=== PATIENT | female | born 1970 | race Caucasian/White ===

== ENCOUNTER → 2022-11-10 10:26 | Outpatient (BNVA) | payer MEDICAID, SELFPAY | PROVIDERS: Visit Provider Physician Assistant | DX: M43.16 Spondylolisthesis, lumbar region (principal) | CPT/HCPCS: 99202 ==

== ENCOUNTER → 2023-02-01 15:26 | Outpatient (BNVA) | payer MEDICAID, SELFPAY | PROVIDERS: Visit Provider Neurological Surgery | DX: M43.16 Spondylolisthesis, lumbar region (principal); M48.062 Spinal stenosis, lumbar region with neurogenic claudication | CPT/HCPCS: 99212 ==

== ENCOUNTER 2023-02-13 06:22 | Inpatient (IN) | payer MEDICAID, SELFPAY ==
--- NOTE | 2023-01-23 | ECG_ITS ---
Test Reason : preop Blood Pressure : / mmHG Vent. Rate : 072 BPM Atrial Rate : 072 BPM P-R Int : 156 ms QRS Dur : 096 ms QT Int : 396 ms P-R-T Axes : 048 047 054 degrees QTc Int : 433 ms Normal sinus rhythm Normal ECG No previous ECGs available Referred By: Kamini Aparicio Electronically Signed By:DARA KELSEY
[2023-01-23 11:29] VITALS: BMI 23.1
[2023-01-23 14:33] LABS: Hemoglobin 13.4 g/dl (12.0-16.0); Mean Corpuscular HGB Conc 33.5 g/dl (31.0-35.0); Mean Corpuscular Hemoglobin 30.9 pg (27.0-33.0); Mean Corpuscular Volume 92.4 fL (80.0-98.0); Mean Platelet Volume 9.9 fL (9.4-12.3); Platelet Count 303 X10*3/uL (160-400); Red Blood Count 4.33 X10*6/uL (4.20-5.50); White Blood Count 7.3 X10*3/uL (4.8-10.8)
[2023-01-23 15:20] LABS: Anion Gap 12 (12-20); Blood Urea Nitrogen 15 mg/dL (9-16); Calcium 9.9 mg/dL (8.4-10.2); Carbon Dioxide 28 mmol/L (22-29); Chloride 105 mmol/L (96-108); Creatinine Clr Calc Pharmacy 78.2; Estimated Glomerular Filt Rate > 60; Glucose Random 122 mg/dL (60-115); Potassium 3.8 mmol/L (3.3-5.1); Sodium 141 mmol/L (135-145)
--- NOTE | 2023-02-10 08:32 | P.CONAN_ITS ---
Documented by User: Kamini Aparicio NP 02/10/23 08:33 HPI - Anesthesia Eval Consult details Narrative: 52yo F for L4-5 Oblique Lumbar Interbody Fusion Pt not seen in [facility] Active Problems Active Problems: All Active Problems (Updated 02/01/23 @ 16:16 by Andrew Newsome MD, PhD) Lumbar stenosis with neurogenic claudication (Acute) Spondylolisthesis, lumbar region (Acute) Past Medical History Medical History (Updated 02/01/23 @ 16:16 by Andrew Newsome MD, PhD) Low back pain Right hip pain Seasonal allergies [place] (hard of hearing) Microscopic hematuria Multiple sclerosis GERD (gastroesophageal reflux disease) Depression Asthma Elevated cholesterol Family History Family History (Updated 01/23/23 @ 11:10 by Berncie Frazier, PETRA) Mother Graves' disease Surgical History Surgical History (Updated 01/23/23 @ 11:09 by Bernice Frazier, RN) Hx of colonoscopy Hx of cystoscopy Social History Social History (Updated 01/23/23 @ 11:33 by Bernice Frazier, RN) Household Members: Other Household Members Other:: room mate Are you a primary eye care professional to a significant other at home: No Do you presently have visiting nurse or other home services: No Patient Tobacco Use Status: Current everyday Tobacco user Tobacco use type: Cigarette Patient Interested in Nicotine Replacement: Yes Use of substances other than those prescribed or required for medical reasons: No Have you been hit, kicked, punched, or otherwise hurt by someone within the past year? If so, by whom?: No Are you DNR?: No Advance Directives: No Advance Directives Information Provided: Yes Advance Directives on File: No Recently lost weight without trying: No Nutrition Risks: No Nutritional Risk Patient : No Meds Allergies Allergy/AdvReac Type Severity Reaction Status Date / Time Sulfa (Sulfonamide Allergy Severe Hives Verified 01/23/23 11:02 Antibiotics) tramadol Allergy Intermediate Rash Verified 01/23/23 11:02 bupropion [From Wellbutrin] AdvReac Severe made her Verified 01/23/23 11:02 filled with rage white paper wasp Allergy Intermediate Swelling Uncoded 01/23/23 11:12 Home Medications Medication Instructions Recorded Confirmed Last Taken Type albuterol sulfate 90 mcg/actuation 2 puff inhalation Q4-6H PRN 01/20/23 01/20/23 02/12/23 History aerosol inhaler (ProAir HFA) Shortness Of Breath Or Wheezing budesonide-formoterol HFA 160 2 puff inhalation BID 01/20/23 01/20/23 Unknown History mcg-4.5 mcg/actuation aerosol inhaler (Symbicort) gabapentin 100 mg capsule 100 mg PO BID 01/20/23 01/23/23 02/13/23 History omeprazole 20 mg capsule,delayed 20 mg PO BID 01/20/23 01/20/23 02/12/23 History release varenicline 0.5 mg (11)-1 mg (42) ea PO DIRECTED 01/20/23 02/12/23 History tablets in a dose pack acetaminophen 500 mg tablet 1,000 mg PO QID PRN Pain 01/23/23 01/23/23 02/13/23 History cholecalciferol (vitamin D3) 10 10 mcg PO DAILY 01/23/23 01/23/23 02/12/23 History mcg (400 unit) capsule (Vitamin D3) gabapentin 100 mg capsule 200 mg PO BEDTIME 01/23/23 01/23/23 02/12/23 History ibuprofen 200 mg capsule 400 mg PO Q8H PRN Pain 01/23/23 01/23/23 02/05/23 History wheat germ oil DAILY 01/23/23 Unknown History Exam Exam Date and Time: February 10, 2023 0832 Height,Weight and Vital Signs: Height 5 ft 5.25 in Weight 63.503 kg Pertinent Lab Results Pertinent Lab Results: Laboratory Tests 01/23/23 01/23/23 13:42 13:46 WBC 7.3 RBC 4.33 Hgb 13.4 Hct 40.0 MCV 92.4 MCH 30.9 MCHC 33.5 RDW 12.0 Plt Count 303 MPV 9.9 Absolute Nucleated RBC 0.000 Nucleated RBC % (auto) 0.0 Sodium 141 Potassium 3.8 Chloride 105 Carbon Dioxide 28 Anion Gap 12 BUN 15 Creatinine 0.74 Estim Creat Clear Calc 78.2 Estimated GFR > 60 Random Glucose 122 H Calcium 9.9 Blood Type A Positive Antibody Screen NEGATIVE Narrative Narrative: EKG 01/2023 Vent. Rate : 072 BPM Atrial Rate : 072 BPM P-R Int : 156 ms QRS Dur : 096 ms QT Int : 396 ms P-R-T Axes : 048 047 054 degrees QTc Int : 433 ms Normal sinus rhythm Normal ECG No previous ECGs available Assessment and Plan Assessment Anesthesia Assessment: Chart Reviewed Documented by User: Gabrielle Smith MD 02/13/23 07:27 [facility] Past Medical History Medical History (Updated 02/01/23 @ 16:16 by Andrew Newsome MD, PhD) Low back pain Right hip pain Seasonal allergies [place] (hard of hearing) Microscopic hematuria Multiple sclerosis GERD (gastroesophageal reflux disease) Depression Asthma Elevated cholesterol Family History Family History (Updated 01/23/23 @ 11:10 by Bernice Frazier RN) Mother Graves' disease Family history of problems with anesthesia: No Surgical History Surgical History (Updated 01/23/23 @ 11:09 by Bernice Frazier RN) Hx of colonoscopy Hx of cystoscopy History of Problems with Anesthesia: No Social History Social History (Updated 01/23/23 @ 11:33 by Bernice Frazier RN) Household Members: Other Household Members Other:: room mate Are you a primary eye care professional to a significant other at home: No Do you presently have visiting nurse or other home services: No Patient Tobacco Use Status: Current everyday Tobacco user Tobacco use type: Cigarette Patient Interested in Nicotine Replacement: Yes Use of substances other than those prescribed or required for medical reasons: No Have you been hit, kicked, punched, or otherwise hurt by someone within the past year? If so, by whom?: No Are you DNR?: No Advance Directives: No Advance Directives Information Provided: Yes Advance Directives on File: No Recently lost weight without trying: No Nutrition Risks: No Nutritional Risk Patient : No Meds Allergies Allergy/AdvReac Type Severity Reaction Status Date / Time Sulfa (Sulfonamide Allergy Severe Hives Verified 01/23/23 11:02 Antibiotics) tramadol Allergy Intermediate Rash Verified 01/23/23 11:02 bupropion [From Wellbutrin] AdvReac Severe made her Verified 01/23/23 11:02 filled with rage white paper wasp Allergy Intermediate Swelling Uncoded 01/23/23 11:12 Home Medications Medication Instructions Recorded Confirmed Last Taken Type albuterol sulfate 90 mcg/actuation 2 puff inhalation Q4-6H PRN 01/20/23 01/20/23 02/12/23 History aerosol inhaler (ProAir HFA) Shortness Of Breath Or Wheezing budesonide-formoterol HFA 160 2 puff inhalation BID 01/20/23 01/20/23 Unknown History mcg-4.5 mcg/actuation aerosol inhaler (Symbicort) gabapentin 100 mg capsule 100 mg PO BID 01/20/23 01/23/23 02/13/23 History omeprazole 20 mg capsule,delayed 20 mg PO BID 01/20/23 01/20/23 02/12/23 History release varenicline 0.5 mg (11)-1 mg (42) ea PO DIRECTED 01/20/23 02/12/23 History tablets in a dose pack acetaminophen 500 mg tablet 1,000 mg PO QID PRN Pain 01/23/23 01/23/23 02/13/23 History cholecalciferol (vitamin D3) 10 10 mcg PO DAILY 01/23/23 01/23/23 02/12/23 History mcg (400 unit) capsule (Vitamin D3) gabapentin 100 mg capsule 200 mg PO BEDTIME 01/23/23 01/23/23 02/12/23 History ibuprofen 200 mg capsule 400 mg PO Q8H PRN Pain 01/23/23 01/23/23 02/05/23 History wheat germ oil DAILY 01/23/23 Unknown History Exam Airway Mallampati Class: III TM Dist: >3cm Neck ROM: Full Assessment and Plan Assessment Anesthesia Assessment: Anesthesia Plan Discussed Final Anesthetic Review Family History of Problems with Anesthesia: No History of Problems with Anesthesia: No NPO: Yes ASA Class: II Final Preanesthetic Review: No Changes in Pt Med Stat, Meds/Allgs Chart Reviewed, Consent Obtained/Reviewed and Anes Risks/Benef Reviewed Patient Risk: Intermediate Procedure Risk: Intermediate Anesthetic Plan Anesthetic Plan: GA Disposition: Standard PACU
[2023-02-13] VITALS (22 sets, daily range): BP systolic 112–171; BP diastolic 66–100; PULSE 59–88; RESP 11–19; TEMP 36.1–36.3; O2SAT 96–100
--- NOTE | ~2023-02-13 | FL_ITS ---
EXAMINATION: XR FLUOROSCOPY WITH IMAGES CLINICAL INFORMATION: L4-L5 0LIF COMPARISON: None available. TECHNIQUE: Fluoroscopy Supervised By: Jerod. Fluoroscopy Time: 1.6 minutes. Cumulative Dose: 68 mGy. DAP: 17.6 Gycm2. Images: 4. FINDINGS: Fluoroscopy performed during posterior L4-L5 fusion. FL/FL guidance in OR IMPRESSION: Fluoroscopy performed by the surgery department. Please see the operative report for additional information.
[2023-02-13] MEDS: methocarbamoL 750 MG TABLET PO (06:44)
[2023-02-13] MEDS: Lactated Ringers 1,000 ML 100 ML IVCONT (06:46)
--- NOTE | 2023-02-13 06:56 | MHC.SHP ---
Pre-Procedural Eval Section A Date of Service: 02/13/23 Section B Chief Complaint: Spondylolisthesis, lumbar region Allergies: Allergies Allergy/AdvReac Type Severity Reaction Status Date / Time Sulfa (Sulfonamide Allergy Severe Hives Verified 01/23/23 11:02 Antibiotics) tramadol Allergy Intermediate Rash Verified 01/23/23 11:02 bupropion [From Wellbutrin] AdvReac Severe made her Verified 01/23/23 11:02 filled with rage white paper wasp Allergy Intermediate Swelling Uncoded 01/23/23 11:12 Review of Systems Sugical H&P ROS: Negative: Constitution, Cardiovascular, Respiratory, Neurological, Psychiatric, Hem-Onc, Allergic/Immunologic, Gastrointestinal, Genitourinary, Musculoskeletal, Integumentary, Endocrine and Eyes/Ears/Nose/Throat Exam Surgical H&P Exam: Not Evaluated: HEENT, Not Evaluated: Heart, Not Evaluated: Lungs, Not Evaluated: Extremities, Not Evaluated: Abdomen, Not Evaluated: Skin and Not Evaluated: Neurological Plan Diagnosis/Plan: Unchanged I have reviewed the history and physical and performed a pertinent physical examination on my patient. No changes have occurred unless specified. Plan remains the same, L4-5 OLIF Time Spent With Patient Time: Total time managing care of this patient today __10__ minutes.
--- NOTE | 2023-02-13 10:12 | P.OP_ITS ---
Operative Note Operative Note Date of Service: 02/13/23 Narrative: Preop Diagnosis: 1.) lumbar spondylolisthesis Procedure: L4-5discectomy, arthrodesis and implantation cage through an anterolateral, retroperitoneal approach; posterior instrumented fusion L4-5; allograft Consent Informed Consent was obtained for this operation. I have explained the nature, purpose and benefits of the operation. I have discussed the risks and benefit of the operation including possible complications or adverse events with patient/family. Alternative(s) were discussed with the patient with their relative benefits and risks as well as the consequences of not accepting the operation were included in obtaining consent. Surgeon: ELENA BROWER MD, PHD Procedure Assisted By: Venancio PHAM Description of Procedure this 52-year-old female saw for back pain bilateral leg pain due to a grade 2 L4-5 spondylolisthesis.The patient was offered an oblique lumbar interbody fusion L4-5. The procedure complications were explained. The patient was consented. The patient was brought to the operating room and endotracheally intubated. The patient was turned in a lateral position with the left side up. Prep and drape was done followed by timeout. A small incision was made in the left lower abdominal quadrant. The muscle fascia was opened after which the 3 muscle layer was split to enter the retroperitoneal space. Dilators were docked in the anterior one third of the L4-5 disc space followed by a retractor. The retractor was opened. The L4-5 disc space was exposed. An annulotomy was done after which an elevator Manley was used to release the disc material from its endplates and to perforate the contralateral side. A partial discectomy was done. An 8 mm and 10 mm height trial implants were inserted. The discectomy was completed. The endplates were prepared. An 10 x 45 mm with 0 degree lordosis 4 web cage filled with allograft was inserted into the disc space under fluoroscopic guidance. This resulted in reduction of the spondylolisthesis indirect decompression of the nervous structures.. The retractor was removed. Hemostasis was done. The incision was closed in 2 layers. Steri-Strips used to approximate incision. An OpSite with Tegaderm was used to cover the incision. This marked first part of the procedure. The patient was turned prone on the Juan [place] spine table. 2C arms were installed for fluoroscopy. Prep and drape was done followed by a second timeout. 2 paramedian incisions were made lateral from the L4-5pedicles. The muscle fascia was opened after which the muscle layer was split bluntly to expose the posterolateral gutter. The following steps were joni en. A pediguard tap was used to create a transpedicular trajectory into the vertebral body. A K wire was placed. A specially designed instrument was advanced over the K wire to decorticate the posterolateral gutter in preparation for the posterolateral fusion. A pedicle screw was advanced over the K wire and the K wire was removed. The steps were done for the bilateral L4 and L5 pedicles. A total of 4 screws were placed with a diameter of 6.5 x 40 mm. Pedicle screws were connected with 45 mm jayjay bilaterally and locked down with locking caps. The extension towers were removed. The posterolateral gutter was filled with allograft to complete the posterolateral L4-5 fusion Hemostasis was done and the incision was closed in 2 layers. Steri-Strips were used to approximate the incision. An OpSite were taken and was used to cover the incision. All sponge and needle counts were correct. Patient was extubated and transferred in stable is to recovery room. The physician administrative assistant receptionist inserted the pedicle screws, performed hemostasis and closed the paramedian incisions. Anesthesia: General Estimated Blood Loss (ml): 10 mL Duration of Surgery: 2 hours Postoperative Plan: Admit to inpatient for observation Complications: None
[2023-02-13] MEDS: fentaNYL citrate/PF 100 MCG/2 ML VIAL 50 MCG IVPUSH ×2 (11:18→11:24)
[2023-02-13] MEDS: oxyCODONE HCl Immed Release 5 MG TABLET PO (11:26)
[2023-02-13] MEDS: HYDROmorphone HCl 0.5 MG/0.5 ML SYRINGE IVPUSH ×2 (11:31→12:12)
[2023-02-13] MEDS: ceFAZolin Sodium/Dextrose,Iso 2 GM/50 ML PIGGYBACK IV ×2 (14:26→20:01)
[2023-02-13] MEDS: 0.9 % Sodium Chloride 1,000 ML 75 ML IVCONT (14:26)
[2023-02-13] MEDS: oxyCODONE HCl Immed Release 5 MG TABLET 10 MG PO (14:26)
--- NOTE | 2023-02-13 15:02 | PHA.MEDREC ---
Pharmacy Consult ? Medication Reconciliation Pharmacy has completed the medication reconciliation. Spoke to patient and verified medication list.
[2023-02-13] MEDS: Acetaminophen 1,000 MG/100 ML PIGGYBACK 400 MG IV ×2 (15:14→21:07)
[2023-02-13] MEDS: Ketorolac Tromethamine 15 MG/ML VIAL IVPUSH ×2 (16:48→21:07)
[2023-02-13] MEDS: Omeprazole 20 MG CAPSULE.DR PO (21:07)
[2023-02-13] MEDS: Gabapentin 100 MG CAPSULE PO (21:08)
[2023-02-13] MEDS: Gabapentin 100 MG CAPSULE 200 MG PO (21:08)
[2023-02-13] MEDS: Docusate Sodium 100 MG CAPSULE PO (21:08)
[2023-02-14] MEDS: HYDROmorphone HCl 1 MG/ML SYRINGE IVPUSH (01:30)
[2023-02-14] MEDS: ceFAZolin Sodium/Dextrose,Iso 2 GM/50 ML PIGGYBACK IV (01:34)
[2023-02-14] MEDS: 0.9 % Sodium Chloride 1,000 ML 75 ML IVCONT (03:40)
[2023-02-14] MEDS: Acetaminophen 1,000 MG/100 ML PIGGYBACK 400 MG IV (03:41)
[2023-02-14] MEDS: Ketorolac Tromethamine 15 MG/ML VIAL IVPUSH (03:41)
[2023-02-14 03:50] VITALS: BP 127/71; PULSE 74; RESP 19; TEMP 36.1; O2SAT 94
[2023-02-14 07:06] VITALS: BP 123/68; PULSE 78; RESP 16; TEMP 36.9; O2SAT 98
--- NOTE | 2023-02-14 07:50 | PM.DS ---
DS: Providers Provider Date of Service: 02/14/23 Date of admission: 02/13/23 06:22 Primary care physician: Nahomi Paige NP DS: Summary Time Spent with Patient Time attestation: Total time managing care of this patient today ____ minutes. Discharge coordination time: Less than 30 minutes Quality: Safe Use of Opioids Does Pt have an Active Cancer Diagnosis on the Problem List?: No Quality: Stroke Does the patient have a stroke diagnosis?: No Physical Exam Vital Signs: Vital Signs: Last Vital Signs Temp 98.4 F 02/14/23 07:06 Pulse 78 02/14/23 07:06 Resp 16 02/14/23 07:06 BP 123/68 02/14/23 07:06 Pulse Ox 98 02/14/23 07:06 O2 Del Method Room Air 02/14/23 07:06 O2 Flow Rate 2 02/13/23 13:12 BMI result Body Mass Index 23.1 DS: Data Data Completed and Pending Labs on day of discharge: Laboratory Results - last 24 hr 02/13/23 07:47 Blood Type A Positive Antibody Screen NEGATIVE Additional Comments Additional comments: Ms. Braxton Is a 52-year-old female is status post L4-5 diskectomy and fusion performed on 02/13/2023. She is POD 1. Her upper and lower extremities are full strength and mobile. Sensation remains grossly intact. Her wound dressings are clean dry and intact on the posterior and left ralph-lateral side. No active serosanguineous drainage noted. She has been eating, getting up out of bed and walking to the bathroom to void, and reports good relief of pain with pain medications. She does endorse some shooting pain down her legs which she has been feeling since surgery intermittently. She does not endorse this on exam today. Overall she is doing very well and is stable, she may call the office for a follow-up in 2-3 weeks for a wound check and to evaluate her healing progress. Two prescriptions 1 for oxycodone 1 for docusate were sent to the [facility] [place] to be brought up to her before she leaves. Discharge Plan Discharge Anticipated Discharge Date/Time: 02/14/23 07:50 Patient Disposition: Home, Self-Care Discharge Diagnosis: S/P L4-5 lumbar fusion Referrals: Nahomi Paige NP [Primary Care Provider] - 1 Week Discharge Medications: New oxycodone 5 mg tablet 5 mg PO Q6H PRN (Reason: moderate-severe pain) Qty: 30 0RF Rx Instructions: Partial Fill upon patient request. docusate sodium 100 mg capsule 100 mg PO BID Qty: 20 0RF Continued omeprazole 20 mg capsule,delayed release(DR/EC) 20 mg PO BID gabapentin 100 mg capsule 100 mg PO BID albuterol sulfate [ProAir HFA] 90 mcg/actuation Hfa Aerosol Inhaler 2 puff INHALATION Q4-6H PRN (Reason: Shortness Of Breath Or Wheezing) varenicline 0.5 mg (11)- 1 mg (42) tablets,dose pack PO DIRECTED gabapentin 100 mg capsule 200 mg PO BEDTIME ibuprofen 200 mg Capsule 400 mg PO Q8H PRN (Reason: Pain) acetaminophen 500 mg Tablet 1,000 mg PO BID-TID PRN (Reason: Pain) cholecalciferol (vitamin D3) [Vitamin D3] 10 mcg (400 unit) Capsule 10 mcg PO DAILY Discontinued wheat germ oil DAILY Discharge Orders: Discharge Order (Routine); Ordered 02/14/23 Ordered By: Landen Diaz Diet: Advance to usual diet Activity on Discharge: As tolerated Stand Alone Forms: Patient Portal Discharge page Activity Restrictions/Additional Instructions: After your spinal surgery we ask you to observe the following restrictions/guidelines: Activity: With lumbar fusion surgery it is normal to have days in the first couple of weeks where you have increased leg pain. This usually lasts 1-2 days and self resolves with the continuation of medication. Attempt to stay mobile and continue activity as tolerated. It is normal to feel some discomfort as you increase your activity, but that will improve with time. We ask you avoid heavy lifting or activities that cause pain. As a general rule, 8lbs is a safe limit for lifting right after surgery. Walk as much as you feel comfortable but not to exhaustion. You will feel extra tired the first few days after surgery. Stay well hydrated. It is OK to walk up and down stairs You may return to driving when you are off narcotics (such as vicodin, oxycodone, dilaudid, etc), and you are back to normal functional capacity. If you have any concerns please check with office before driving. Return to work is specific to each patient and each surgery, so please speak with your doctor/PA at first follow up. Please bring paperwork such as FMLA at that time if you need it filled out. Medications: It is recommended that you take Tylenol 500 mg every 4 hours for the 1st week postoperatively, alongside ibuprofen 600 mg every 8 hours. We will give you a short supply of narcotics after surgery (usually one weeks worth). Please use this for breakthrough pain that is refractory to the Tylenol ibuprofen and gabapentin. If you need more please call the office but do not use more than prescribed. You will need to give our office 48 hours notice if you need narcotics refilled and we do not fill narcotics on weekends or evenings. If you are on a narcotic, it is a good idea to take a stool softener such as colace or senna to avoid constipation If you take blood thinner such as aspirin, Plavix, Coumadin, Effient, Eliquis etc for conditions such as Afib, DVT, Pulmonary embolus, coronary disease, stents etc please speak with your surgeon about specific details as to when you can resume these medications. You can resume NSAIDs on post op day 1 (eg: Motrin, Naproxen, etc). Follow up: Please call the office, , after surgery to arrange a 3 week follow up for wound check. Wound Care: You may remove your dressing on the first day after surgery. You may leave open to air. Please do not remove the steri strips underneath. they will fall off on their own in one week. IT IS NORMAL FOR THE WOUND TO OOZE OR BE BLOODY FOR A FEW DAYS AFTER SURGERY. IF THIS HAPPENS JUST PLACE NEW DRESSING OVER IT TO AVOID STAINING CLOTHES. You may shower on post op day # 1 We ask that you do not let the water soak the wound. If it does get wet, just towel dry lightly. Please do not scrub your incision or place any type of chemical/ointment on the wound. No tub baths, pools or jacuzzis for one month. If you have any leaking or redness from your wound, or fevers, please call office Care Plan Goals: Return to activity as tolerated. Health Concerns: None. Plan of Treatment: Follow-up in outpatient clinic in 2-3 weeks. Assessment: Stable.
--- NOTE | 2023-02-14 08:03 | HO.NEUROPN_ITS ---
Neurosurgery Operative Note Date of Service: 02/14/23 Narrative: Procdeure: L4-5 diskectomy & fusion POD: 1 Ms. Braxton Is a 52-year-old female is status post L4-5 diskectomy and fusion performed on 02/13/2023. She was seen in her room on [address]. She was awake, sitting up in bed drinking her morning coffee. She reports she has been up out of bed, with minimal pain and is otherwise doing well. Her upper and lower extremities are full strength and mobile. Sensation remains grossly intact. Her wound dressings are clean dry and intact on the posterior and left ralph-lateral side. No active serosanguineous drainage noted. She has been eating, getting up out of bed and walking to the bathroom to void, and reports good relief of pain with pain medications. She does endorse some shooting pain down her legs which she has been feeling since surge ry intermittently. She does not endorse this on exam today. Overall she is doing very well and is stable, she may call the office for a follow-up in 2-3 weeks for a wound check and to evaluate her healing progress. Two prescriptions 1 for oxycodone 1 for docusate [place] [facility] [place] be brought up to her before she leaves. Landen Cooper MD,PhD [facility]
[2023-02-14] MEDS: Fluticasone/Vilanterol 200/25 BLST.W.DEV 1 PUFF INHALE (08:36)
[2023-02-14 08:39] VITALS: PULSE 77; RESP 20; O2SAT 98
--- NOTE | 2023-02-14 08:55 | MHC.CM.PN ---
PT DCD HOME NO SERVICES NEEDED
[2023-02-14] MEDS: oxyCODONE HCl Immed Release 5 MG TABLET 10 MG PO (09:31)
[2023-02-14] MEDS: Omeprazole 20 MG CAPSULE.DR PO (09:32)
[2023-02-14] MEDS: Cholecalciferol (Vitamin D3) 10 MCG TABLET PO (09:32)
[2023-02-14] MEDS: Docusate Sodium 100 MG CAPSULE PO (09:32)
[2023-02-14] MEDS: Gabapentin 100 MG CAPSULE PO (09:32)
[2023-02-14 10:31] VITALS: PULSE 77
--- NOTE | 2023-02-15 06:48 | HO.POSTANES ---
Post Anesthesia Evaluation Post Anesthesia Evaluation Date of Service: 02/14/23 Vital Signs: Patient seen at 700am on 02/14/23 for a post-op anesthesia check. Vitals: 123/68, 78, 16, 98.4F, 98%RA Anesthesia: General Endotracheal-GETA Mental Status: Awake Pain Control: Satisfactory Nausea/Vomiting: None Hydration: Adequate Anesthesia-Related Issues: No Anes. Related Issues
== END 2023-02-14 11:20 | disposition home or self-care (01) | DRG 304 ==
LOC: HO.SSSA 06:22 → HO.S3 13:18
PROVIDERS: Nurse Practitioner; Admitting Provider Neurological Surgery; PCP Nurse Practitioner Family; Visit Provider Neurological Surgery
PROC: 0SG00A0 Fusion of Lumbar Vertebral Joint with Interbody Fusion Device, Anterior Approach, Anterior Column, Open Approach (ICD-10-PCS; principal; 2023-02-13 07:30)
DX: M43.16 Spondylolisthesis, lumbar region (principal); E78.00 Pure hypercholesterolemia, unspecified; F17.210 Nicotine dependence, cigarettes, uncomplicated; G35 Multiple sclerosis; K21.9 Gastro-esophageal reflux disease without esophagitis; Z23 Encounter for immunization; Z71.6 Tobacco abuse counseling; Z79.899 Other long term (current) drug therapy
CPT/HCPCS: 36415; 80048; 85027; 86850; 86900; 86901; 90686; 93005; 97161; 97530; C1713; J0131; J0690; J1100; J1170; J1885; J2250; J2405; J3010; L8699

== ENCOUNTER → 2023-02-13 06:22 | Outpatient (BNV) | payer MEDICAID, SELFPAY | PROVIDERS: Admitting Provider Neurological Surgery; PCP Nurse Practitioner Family; Visit Provider Neurological Surgery | DX: Z48.89 Encounter for other specified surgical aftercare (principal) | CPT/HCPCS: 20930; 22558; 22612; 22840; 22853; 99024; 99499 ==

== ENCOUNTER 2023-03-07 13:00 | Outpatient (AMB) | payer MEDICAID, SELFPAY ==
--- NOTE | 2023-03-07 13:39 | A.OFFVIS_ITS ---
Intake Intake Visit Reasons: 1st post op Intake Note: Pt here for 1st post op Unloading Checker Required: No Allergies Sulfa (Sulfonamide Antibiotics) Allergy (Severe, Verified 01/23/23 11:02) Hives tramadol Allergy (Intermediate, Verified 01/23/23 11:02) Rash bupropion [From Wellbutrin] Adverse Reaction (Severe, Verified 01/23/23 11:02) made her filled with rage white paper wasp Allergy (Intermediate, Uncoded 01/23/23 11:12) Swelling PFSH Medical History (Updated 02/01/23 @ 16:16 by Andrew Newsome MD, PhD) Low back pain Right hip pain Seasonal allergies [place] (hard of hearing) Microscopic hematuria Multiple sclerosis GERD (gastroesophageal reflux disease) Depression Asthma Elevated cholesterol Surgical History (Updated 03/07/23 @ 14:03 by VERO Ring) Hx of colonoscopy Hx of cystoscopy Family History (Updated 01/23/23 @ 11:10 by Bernice Frazier, PETRA) Mother Graves' disease Social History (Updated 01/23/23 @ 11:33 by Bernice Frazier, RN) Household Members: Significant Other Household Members Other:: room mate Housing: House Are you a primary care director rn to a significant other at home: No Do you presently have visiting nurse or other home services: No Patient Tobacco Use Status: Current someday Tobacco user Tobacco use type: Cigarette Cigarettes Per Day: 1 Assessment & Plan Assessment & Plan (1) Lumbar stenosis with neurogenic claudication: Code(s): M48.062 - Spinal stenosis, lumbar region with neurogenic claudication (2) Status post lumbar spine surgery for decompression of spinal cord: Code(s): Z98.890 - Other specified postprocedural states Plan Procedure: oblique lumbar interbody fusion L4-5 Jaycee comes in today for her 1st postoperative visit. She reports she is very satisfied with the surgery and feels much better than she did pre-operatively. The patient reports she is up walking around and completing the majority of her ADLs. She reports that she no longer suffers from her bilateral leg pain but s till has some lower back pain. She reports good relief of her pain with [id number] pain medicines. She had many postoperative questions today. She asked to review her intra-operative x-rays which we did together and I explained the posterior instrumentation that was placed. She asked questions about flying to her family's house in [place] around Eric time, about driving from [place] to [place], and about picking up 20+ lbs (grandchildren). We extensively discussed the risks/benefits associated with these activities. She was informed that she needs to be aware of her personal limitations and restrict her behaviors based on has she feels physically after performing tasks that continue to gradually increase in difficulty. Strength is full in upper and lower extremities. Mobility is intact. Sensation grossly intact. Patient is able to ambulate well, rises from a seated position without difficulty. Anterior and posterior incision sites are closed &well healed. We will follow-up with the patient in 6 weeks for her 2nd postoperative visit. At that time we will get x-rays to review with the patient. Landen Newsome MD,PhD [facility] Orders: Orders XR lumbar spine 4V min Today M48.062 - Spinal stenosis, lumbar region with neurogenic claudication Coding Level of Care Code Global (85551) Diagnoses Lumbar stenosis with neurogenic claudication M48.062 Status post lumbar spine surgery for decompression of spinal cord Z98.890
== END 2023-03-07 14:01 | disposition home or self-care (01) ==
PROVIDERS: Visit Provider Physician Assistant
DX: M48.062 Spinal stenosis, lumbar region with neurogenic claudication (principal); Z98.890 Other specified postprocedural states
CPT/HCPCS: 99024

== ENCOUNTER 2023-03-07 13:00 | Outpatient (REF) | payer MEDICAID, SELFPAY | END 2023-03-07 13:01 | disposition home or self-care (01) | LOC: HO.HOSX 13:00 | PROVIDERS: Visit Provider Physician Assistant | DX: Z13.89 Encounter for screening for other disorder (principal) ==

== ENCOUNTER 2023-04-18 13:04 | Outpatient (AMB) | payer MEDICAID, SELFPAY ==
--- NOTE | 2023-04-18 13:20 | HO.SPINEOV ---
Intake Intake Visit Reasons: 2nd post op with x-rays Intake Note: Ms. Braxton is here today for her 2nd post-op visit. Mate First Required: No Allergies Sulfa (Sulfonamide Antibiotics) Allergy (Severe, Verified 01/23/23 11:02) Hives tramadol Allergy (Intermediate, Verified 01/23/23 11:02) Rash bupropion [From Wellbutrin] Adverse Reaction (Severe, Verified 01/23/23 11:02) made her filled with rage white paper wasp Allergy (Intermediate, Uncoded 01/23/23 11:12) Swelling Assessment & Plan Assessment & Plan (1) Status post lumbar spine surgery for decompression of spinal cord: Code(s): Z98.890 - Other specified postprocedural states Plan Procedure: L4-5 OLIF Jaycee comes in today for her 1st postoperative visit. She reports she is very satisfied with the surgery and feels much better than she did preoperatively. We reviewed her X-rays today and compared them to her intra-operative X-rays. They show stable placement of posterior instrumentation with no notable changes. 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 No neurological deficits. Patient is able to ambulate well, rises from a seated position without difficulty. Incision sites are closed & well healed. The patient meets medical criteria to be discharged as a patient. She may follow up on an as needed basis. Landen Newsome MD,PhD [facility] Coding Level of Care Code Global (32673) Diagnoses Status post lumbar spine surgery for decompression of spinal cord Z98.890
== END 2023-04-18 13:43 | disposition home or self-care (01) ==
PROVIDERS: Visit Provider Physician Assistant
DX: Z98.890 Other specified postprocedural states (principal)
CPT/HCPCS: 99024

== ENCOUNTER → 2023-04-18 13:04 | Outpatient (BNVA) | payer MEDICAID, SELFPAY | PROVIDERS: Visit Provider Physician Assistant ==

== ENCOUNTER 2023-04-18 13:09 | Outpatient (REF) | payer MEDICAID, SELFPAY ==
--- NOTE | ~2023-04-18 | XR_ITS ---
EXAMINATION: XR LUMBOSACRAL SPINE WITH OBLIQUES CLINICAL INFORMATION: Spinal stenosis Claudication COMPARISON: 4. The guidance wire from 02/13/2023 TECHNIQUE: 4 views of the lumbar spine FINDINGS: Status post posterior spinal fusion of L4-L5. Spinal hardware is grossly intact. No acute visible fracture or dislocation. Grade 1 anterolisthesis of L5 on S1. Very slight grade 1 anterolisthesis of L4 on L5. No overt dynamic instability on flexion-extension views. Vertebral body heights and disc spaces are otherwise maintained. Posterior elements are intact. Paraspinal soft tissues are unremarkable. Bowel gas is unremarkable. XR/XR lumbar spine 4V min IMPRESSION: 1. No acute visible fracture or dislocation. 2. Status post posterior spinal fusion of L4-L5 with intact spinal hardware. 3. Grade 1 anterolisthesis of L5 on S1 and very slight grade 1 anterolisthesis of L4 on L5 without overt dynamic instability.
== END 2023-04-18 13:10 | disposition home or self-care (01) ==
LOC: HO.HOSX 13:09
PROVIDERS: Visit Provider Physician Assistant
DX: M48.062 Spinal stenosis, lumbar region with neurogenic claudication (principal); Z48.811 Encounter for surgical aftercare following surgery on the nervous system; Z98.890 Other specified postprocedural states
CPT/HCPCS: 72110; 99212